=== PATIENT | male | born 1955 | race Caucasian/White ===

== ENCOUNTER 2017-08-14 20:19 | Emergency (ER) | payer SELFPAY ==
[~2017-08-14] VITALS: Ht 167.6 cm; Wt 86.6 kg
[2017-08-14 20:34] VITALS: Ht 167.6 cm; Wt 86.6 kg
[2017-08-14 21:56] VITALS: BP 117/71
== END 2017-08-14 21:56 | disposition home or self-care (01) ==
LOC: ED 20:19
DX: R33.9 Retention of urine, unspecified (principal); R10.84 Generalized abdominal pain

== ENCOUNTER 2017-08-18 06:26 | Emergency (ER) | payer SELFPAY ==
[~2017-08-18] VITALS: Ht 170.2 cm; Wt 86.7 kg
[2017-08-18 06:34] VITALS: Ht 170.2 cm; Wt 86.7 kg
[2017-08-18 07:01] VITALS: BP 124/78
== END 2017-08-18 07:01 | disposition home or self-care (01) ==
LOC: ED 06:26
DX: Z46.6 Encounter for fitting and adjustment of urinary device (principal)

== ENCOUNTER 2017-08-23 14:07 | Emergency (ER) | payer SELFPAY ==
[~2017-08-23] VITALS: Ht 165.1 cm; Wt 84.8 kg
[2017-08-23 14:12] VITALS: Ht 165.1 cm; Wt 84.8 kg
[2017-08-23 16:57] VITALS: BP 115/77
== END 2017-08-23 16:57 | disposition home or self-care (01) ==
LOC: ED 14:07
DX: Z46.6 Encounter for fitting and adjustment of urinary device (principal); I10 Essential (primary) hypertension

== ENCOUNTER 2019-07-29 10:33 | Emergency (ER) | payer MEDICAID ==
[~2019-07-29] VITALS: Ht 170.2 cm; Wt 89.8 kg
[2019-07-29 10:43] VITALS: Ht 170.2 cm; Wt 89.8 kg
[2019-07-29 13:35] VITALS: BP 120/74
== END 2019-07-29 13:35 | disposition home or self-care (01) ==
LOC: ED 10:33
DX: N39.0 Urinary tract infection, site not specified (principal); E66.9 Obesity, unspecified; I10 Essential (primary) hypertension; Z68.31 Body mass index [BMI] 31.0-31.9, adult; Z90.89 Acquired absence of other organs

== ENCOUNTER 2019-08-09 15:17 | Emergency (ER) | payer MEDICAID ==
[~2019-08-09] VITALS: Ht 165.1 cm; Wt 88.0 kg
[2019-08-09 15:38] VITALS: Ht 165.1 cm; Wt 88.0 kg
[2019-08-09 18:17] VITALS: BP 123/76
== END 2019-08-09 18:04 | disposition home or self-care (01) ==
LOC: ED 15:17
DX: N40.1 Benign prostatic hyperplasia with lower urinary tract symptoms (principal)
CPT/HCPCS: J0696